=== PATIENT | male | born 1990 | race Caucasian/White ===

== ENCOUNTER → 2016-09-11 | Outpatient (CLI) | payer OTHER ==
[2016-09-11 09:27] LABS: CHLORIDE,CL 105 mmol/L (98-110); SODIUM,NA 141 mmol/L (136-146)
== END ==
LOC: MW.CHFP 08:41
PROVIDERS: ATTEND Family Medicine
DX: Z00.00 Encounter for general adult medical examination without abnormal findings (principal); K29.70 Gastritis, unspecified, without bleeding
CPT/HCPCS: 36415; 80053; 80061; 84443; 85027

== ENCOUNTER 2019-01-04 07:55 | Emergency (ER) | payer OTHER ==
[2019-01-04] MEDS ORDERED: Proparacaine 0.5% Ophth Soln 15 ML Bottle EYEBOTH STA (08:14)
[2019-01-04] MEDS ORDERED: Tetracaine HCl/PF 0.5% 4 ML Bottle ONE (08:16)
[2019-01-04] MEDS ORDERED: Tetracaine HCl/PF 0.5% 4 ML Bottle EYELF ONE (08:20)
--- NOTE | 2019-01-04 08:28 | EDM.PDOC ---
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 He now has redness of the right eye with mild blurry vision Review of systems: As per history of present illness and below otherwise all systems reviewed and negative. Past medical history: As per history of present illness and as reviewed below otherwise noncontributory. Surgical history: As per history of present illness and as reviewed below otherwise noncontributory. Social history: No reported history of drug or alcohol abuse. Family history: As per history of present illness and as reviewed below otherwise noncontributory. Physical exam: General: Well developed, well nourished in NAD HEENT: Right eye erythematous there is a small rust ring noted at 3o'clock and he small metallic speck visualized with slit lamp. normocephalic, pupils reactive, negative for conjunctival pallor or scleral icterus, mucous membranes moist, throat clear, neck supple, nontender, trachea midline. Lungs: Clear to auscultation, breath sounds equal bilaterally, chest nontender. Heart: S1S2, regular, negative for clicks, rubs, or JVD. Abdomen: NABS, Soft, nondistended, nontender. Negative for masses or hepatosplenomegaly. Negative for costovertebral tenderness. Pelvis: Stable nontender. Genitourinary: Deferred. Rectal: Deferred. Extremities: Atraumatic, negative for cords or calf pain. Neurovascular unremarkable. Neuro: Awake, alert, oriented. Cranial nerves II through XII unremarkable. Cerebellum unremarkable. Motor and sensory unremarkable throughout. Exam nonfocal. Skin:warm and dry Diagnostics: Right eye stained with fluorescein uptake noted around a rust ring, small metallic foreign body removed with TB needle Therapeutics: Declined pain meds ED Course: Stable Impression: foreign body removal right eye with residual rust ring Prescriptions: erythromycin ophthalmic ointment Plan: Follow up with ophthalmology Definitive disposition and diagnosis as appropriate pending reevaluation and review of above. right eye Pain Score (Numeric/FACES): 5 - Related Data Allergies Allergy/AdvReac Type Severity Reaction Status Date / Time No Known Allergies Allergy Verified 01/04/19 08:03 Home Meds: Home Meds Erythromycin Base [Erythromycin 0.5% Ophth Oint] 1 applic OP Q12H #1 tube [Rx] Past Medical History - Past Health History Medical/Surgical History: Denies Medical/Surgical History - Infectious Disease History Infectious Disease History: Reports: Chicken Pox Social & Family History - Family History Family Medical History: Noncontributory - Tobacco Use Smoking Status *Q: Never Smoker - Recreational Drug Use Recreational Drug Use: No ED ROS GENERAL - Review of Systems Review Of Systems: See Below ED EXAM GENERAL W FULL EYE - Physical Exam Exam: See Below Course - Vital Signs Last Recorded V/S: Last Vital Signs Temp 97.3 F 01/04/19 08:32 Pulse 72 01/04/19 08:32 Resp 16 01/04/19 08:01 BP 154/84 H 01/04/19 08:32 Pulse Ox 97 01/04/19 08:32 - Orders/Labs/Meds Meds: Medications Discontinued Medications Generic Name Dose Route Start Last Admin Trade Name Freyulia PRN Reason Stop Dose Admin Proparacaine HCl 1 ml 01/04/19 08:14 01/04/19 08:20 Proparacaine 0.5% Ophth Soln EYEBOTH 01/04/19 08:15 Not Given NOW STA Tetracaine HCl Confirm 01/04/19 08:16 01/04/19 08:20 Tetracaine 0.5% Steri-Unit Rhonda Administered 01/04/19 08:17 Not Given Dose 4 ml .ROUTE .STK-MED ONE Tetracaine HCl 1 ml 01/04/19 08:20 01/04/19 08:23 Tetracaine 0.5% Steri-Unit Rhonda EYELF 01/04/19 08:21 1 dose ASDIRECTED ONE Administration Departure - Departure Time of Disposition: 08:25 Disposition: Home, Self-Care 01 Condition: Good Clinical Impression: Foreign body of right eye Qualifiers: Encounter type: initial encounter Qualified Code(s): T15.91XA - Foreign body on external eye, part unspecified, right eye, initial encounter Corneal rust ring Qualifiers: Laterality: right Qualified Code(s): H18.891 - Other specified disorders of cornea, right eye - Discharge Information *PRESCRIPTION DRUG MONITORING PROGRAM REVIEWED*: No *COPY OF PRESCRIPTION DRUG MONITORING REPORT IN PATIENT RATNA: No Prescriptions: Erythromycin Base [Erythromycin 0.5% Ophth Oint] 1 applic OP Q12H #1 tube Instructions: Eye Foreign Body, [id number] Referrals: PCP,None [Primary Care Provider] - Jeremias Shell MD [Consulting Physician] - 1 Day Forms: ED Department Discharge Additional Instructions: The following information is given to patients seen in the emergency department who are being discharged to home. This information is to outline your options for follow-up care. We provide all patients seen in our emergency department with a follow-up referral. The need for follow-up, as well as the timing and circumstances, are variable depending upon the specifics of your emergency department visit. If you don't have a primary care physician on staff, we will provide you with a referral. We always advise you to contact your personal physician following an emergency department visit to inform them of the circumstance of the visit and for follow-up with them and/or the need for any referrals to a consulting specialist. The emergency department will also refer you to a specialist when appropriate. This referral assures that you have the opportunity for follow-up care with a specialist. All of these measure are taken in an effort to provide you with optimal care, which includes your follow-up. Under all circumstances we always encourage you to contact your private physician who remains a resource for coordinating your care. When calling for follow-up care, please make the office aware that this follow-up is from your recent emergency room visit. If for any reason you are refused follow-up, please contact the [facility] Emergency Department at and asked to speak to the emergency department charge nurse. follow-up with ophthalmology in one to [address] [address]
[2019-01-04 08:33] VITALS: BP 154/84; PULSE 72
== END 2019-01-04 08:36 | disposition home or self-care (01) ==
LOC: MW.ED 07:55
DX: T15.01XA Foreign body in cornea, right eye, initial encounter (principal); X58.XXXA Exposure to other specified factors, initial encounter
CPT/HCPCS: 99283

== ENCOUNTER 2019-07-04 16:18 | Emergency (ER) | payer OTHER ==
--- NOTE | 2019-07-04 17:33 | CR ---
Soft tissue neck: AP and lateral views of the neck were obtained. Prevertebral soft tissues are normal. Epiglottis is normal. No subglottic edema is appreciated. No bony abnormality or opaque foreign body is appreciated. Impression: 1. No abnormality is seen on 2 view soft tissue neck exam. Diagnostic code #1 This report was dictated in Mountain Standard Time
--- NOTE | 2019-07-04 17:48 | EDM.PDOC ---
ED HPI GENERAL MEDICAL PROBLEM - General Chief Complaint: Respiratory Problem Stated Complaint: SHORTNESS OF BREATH,CONSTRICTION IN THROAT Time Seen by Provider: 07/04/19 16:50 - History of Present Illness INITIAL COMMENTS - FREE TEXT/NARRATIVE: HPI 29 y/o male presents for evaluation of two weeks of intermittent mid throat sensation that was company by a sensation that he has difficulty breathing. Patient denies mates was, fevers, chills, difficulty swallowing, neck stiffness , medication usage, OTC medication usage, non-smoker. Patient is currently asymptomatic. ROS with no recent constitutional symptoms. Exam HR 74, RR 18, BP 147/78, T 36.6C, SaO2 90% on room air. Gen: Pleasant, non-toxic appearing, resting comfortably HEENT: NC, AT, PEERL, EOMI. Oropharynx visually normal, neck supple with full ANNETTE him, floor the mouth soft without swelling, no lymphadenopathy, no stridor or stertor either grossly or on auscultation. Resp: Clear to auscultation bilaterally. Unlabored respirations with a normal work of breathing. Card: Regular rate and rhythm. Extremities warm and well perfused. GI: Non-distended. : Deferred MSK: No visible deformities, strength and tone without visually appreciable deficit. Neuro: alert and oriented 3, no facial asymmetry, vision and hearing WNL. Heme/Lymph: Deferred Skin: Normal color with no visible lesions (other than noted above). Psych: Mood and affect appropriate. Imaging: XR soft tissue neck: no abnormalities seen on 2 view soft tissue neck exam. MDM Previous chart, nursing note, and vitals reviewed. A: 29 y/o male presents for evaluation of two weeks of intermittent mid throat sensation that was company by a sensation that he has difficulty breathing. DDx & Evaluation: patient is well-appearing, no discernible pathology on imaging or exam such as tracheitis (no fever, normal x-ray, nontoxic-appearance) , no features suggestive of epiglottitis, RPA, IMAGING CENTER MANAGER, or paradoxical vocal cord dysfunction. Given the highly intermittent nature of the patients symptoms a tumor or proliferative process is considered unlikely. No medications that may cause angioedema nor a family history that would be consistent with this. Recommend watchful waiting and PCP follow-up. Impression: intermittent throat swelling sensation. - Related Data Allergies Allergy/AdvReac Type Severity Reaction Status Date / Time No Known Allergies Allergy Verified 07/04/19 16:29 Home Meds: Home Meds . [No Known Home Meds] 07/04/19 [History] Past Medical History - Past Health History Medical/Surgical History: Denies Medical/Surgical History HEENT History: Reports: None Cardiovascular History: Reports: None Respiratory History: Reports: None Gastrointestinal History: Reports: None Genitourinary History: Reports: None Musculoskeletal History: Reports: None Neurological History: Reports: None Psychiatric History: Reports: None Endocrine/Metabolic History: Reports: None Hematologic History: Reports: None Immunologic History: Reports: None Oncologic (Cancer) History: Reports: None Dermatologic History: Reports: None - Infectious Disease History Infectious Disease History: Reports: None - Past Surgical History Head Surgeries/Procedures: Reports: None Social & Family History - Family History Family Medical History: Noncontributory - Tobacco Use Smoking Status *Q: Never Smoker Second Hand Smoke Exposure: No - Caffeine Use Caffeine Use: Reports: None - Recreational Drug Use Recreational Drug Use: No ED ROS GENERAL - Review of Systems Review Of Systems: See Below ED EXAM, GENERAL - Physical Exam Exam: See Below Course - Vital Signs Last Recorded V/S: Last Vital Signs Temp 36.6 C 07/04/19 16:27 Pulse 74 07/04/19 16:27 Resp 18 07/04/19 16:27 BP 147/78 H 07/04/19 16:27 Pulse Ox 98 07/04/19 16:27 Departure - Departure Time of Disposition: 17:47 Disposition: DC/Tfer W/I Hosp To Swing 61 Clinical Impression: Throat swelling - Discharge Information Referrals: Mercedes Welch MD [Primary Care Provider] - Additional Instructions: You were in seen in the Emergency Department for evaluation of an intermittent sensation of your throat swelling. At the time of your evaluation the cause of your symptoms is unclear. No abnormalities were noted on your x-ray were physical exam. Please read and follow all of the instructions below. Please follow up with your primary care physician within 3-4 days for repeat evaluation further care as needed. When calling for follow-up care, please make the office aware that this follow-up is from your recent emergency room visit. If for any reason you are refused follow-up, please contact the Emergency Department at and asked to speak to the emergency department charge nurse. Your care today was limited to identifying and treating emergent medical problems only. Many people have subtle differences in their test results that require follow up with their outpatient physician(s) to correctly determine if this represents a normal variation or concerning abnormality with respect to your specific health. The care given to you today was limited to identifying and treating emergent medical problems - you need to request a copy of all of your medical records from today's visit and follow up with your outpatient physician(s) to review both today's visit and your overall health. If you have any new symptoms or if you are at all concerned about your health please return immediately to the emergency department. Prescriptions: If you are uninsured or have financial difficulties with filling your prescription(s), you may consider using a free pharmacy discount service such as [employer] ([employer]) or [employer] ([employer]). These services allow you to search for a medication on your phone (or computer) and obtain a coupon that usually has a significant discount from the list silverio at a pharmacy. Your physician as well as [facility] does not have a financial relationship with either of these services. You may also wish to speak with your physician to determine if lower cost prescriptions are possible. Obtaining primary care: 1. [facility] provides pediatrics (children), family medicine (children, adults, and some obstetrical care), and internal medicine (adults). Further specialty care is also available. Same day appointments are available. They may be contacted at [phone] and are open Thursday through Thursday 8 AM to 5 PM. The [facility] are located at [facility], [facility] [address], [place] [address]. 2. [facility] offers family medicine, internal medicine, womens health, and further specialty care. [facility] may be contacted at [phone]. [facility] is located at [address] [place], [address]. 3. If you have health insurance, please also contact your insurer for a list of accepting providers under your policy, you may contact these providers for further health care. Occupational health: Work related injuries may consider following up with [facility], . Occupational health services are located at [address] [place] [id number] and are open Thursday through Thursday from 7: 30 am to 5:00 pm. Obstetrical and Gynecological Care: [facility], , Thursday through Thursday 8 AM to 5 PM. [address] [place] [address]. Eyecare: If you have an eye injury you should follow up with your mechanical engineering coop or with [facility], at [phone] or [phone] , they are located at [address] [place] [address]. [facility] Cespedes DDS. [address] [place], [place]. Ph. [phone] Gautam Cespedes DDS [place]. [address] [facility] 104, [place], [place]. Ph. Geraldo Pina DDS. 10 04/[address] [place] [address]. Ph. [phone] Tarik Nichols DDS. [address] [facility] 4 [place], [place]. Ph. [phone] Jose [facility] Pope [facility] PC. [address] [facility] [address] [place], [place]. Ph. Boy Resendez DDS. [address] [place] [address]. Ph. [phone] [facility]. [address] [place], [place]. Ph. [phone] [place] [place] [address], [place], [place]. Ph. [phone] [facility] [address] [place] [address]. Ph. [facility]. [address] [place] [address] [address] [place], [place]. Ph. [phone] [facility]. [address] [place], [place]. Ph. Sepsis Event Note - Evaluation Sepsis Screening Result: No Definite Risk - Focused Exam Vital Signs: Vital Signs Temp Pulse Resp BP Pulse Ox 07/04/19 16:27 36.6 C 74 18 147/78 H 98 Date Exam was Performed: 07/04/19 Time Exam was Performed: 17:47
[2019-07-04 18:03] VITALS: BP 148/92; PULSE 71
== END 2019-07-04 18:02 | disposition home or self-care (01) ==
LOC: MW.ED 16:18
DX: R22.1 Localized swelling, mass and lump, neck (principal)
CPT/HCPCS: 70360; 70360-26; 99284-25